=== PATIENT | female | born 1935 | race Caucasian/White ===

== ENCOUNTER 2017-09-01 11:51 | Inpatient (IN) ==
--- NOTE | 2017-09-01 12:25 | Emergency Department Note ---
ED Disposition Clinical Impression: Confusion Dementia Qualifiers: Dementia type: Alzheimer's disease Alzheimer's disease onset: unspecified onset Dementia behavioral disturbance: without behavioral disturbance Qualified Code(s): G30.9 - Alzheimer's disease, unspecified Fever Qualifiers: Fever type: unspecified Qualified Code(s): R50.9 - Fever, unspecified Disposition: Admitted As Inpatient Condition on Discharge: Fair - Critical Care Critical Care Time: No Attestation: On 09/01/17, the high probability of a clinically significant, sudden or life threatening deterioration of the following system(s) required my full and direct attention, intervention and personal management. The time I documented below is in addition to time spent performing reported procedures but includes the following listed in this critical care notation. Medical Decision Making - Medical Records Medical records reviewed: Yes: I reviewed the patient's medical records. - Jason Inquiry Pt receiving controlled substance: No Vital Signs: 09/01/17 11:52 09/01/17 14:22 09/01/17 15:28 Temperature 99.7 F H 101.7 F H 99.0 F Temperature Source Oral Oral Oral Pulse Rate 98 H Pulse Rate [Right Radial] 108 H 98 H Respiratory Rate 16 20 16 Blood Pressure 151/63 Blood Pressure [Right Arm] 131/91 146/61 Blood Pressure Mean [Right Arm] 104 89 Blood Pressure Source Automatic Cuff Blood Pressure Source [Right Arm] Automatic Cuff Automatic Cuff Blood Pressure Position Supine Blood Pressure Position [Right Arm] Supine Sitting 02 Sat by Pulse Oximetry 97 97 Oxygen Delivery Method Room Air Room Air Room Air - Lab Data Lab results reviewed: Yes: I reviewed the patient's lab results. Lab Results 09/01/17 10:19: Urine Color Yellow, Urine Appearance Clear, Urine pH 5.5, Ur Specific [place] 1.020, Urine Protein Trace, Urine Glucose (UA) Negative, Urine Ketones Negative, Urine Blood Negative, Urine Nitrate Negative, Urine Bilirubin Negative, Urine Urobilinogen 0.2, Ur Leukocyte Esterase Negative, Urine RBC None , Urine WBC Occasional, Ur Squamous Epith Cells 5-10, Urine Bacteria Trace 09/01/17 12:25: WBC 12.3 H, RBC 4.12 L, Hgb 12.7, Hct 39.8, MCV 96.8, MCH 30.8, MCHC 31.8, RDW 12.2, Plt Count 257, MPV 7.8, Neut % (Auto) 93.6 H, Lymph % (Auto ) 2.3 L, [place] % (Auto) 2.5, Eos % (Auto) 1.4, Baso % (Auto) 0.2, Neut # (Auto) 11.5 H, Lymph # (Auto) 0.3 L, [place] # (Auto) 0.3, Eos # (Auto) 0.2, Baso # (Auto ) 0.0, Total Counted 100, Neutrophils % (Manual) 94 H, Lymphocytes % (Manual) 3 L, Monocytes % (Manual) 3, Platelet Estimate Normal, RBC Morphology Normal 09/01/17 12:25: Sodium 132 L, Potassium 5.1, Chloride 101, Carbon Dioxide 20 L, Anion Gap 16.1 H, BUN 32 H, Creatinine 1.51 H, Estimated Creat Clear 25, Estimated GFR 33 L, Est GFR ( Amer) 40 L, Glucose 137 H, Calcium 9.0, Total Bilirubin 0.8, AST 19, ALT 15, Alkaline Phosphatase 139 H, Troponin I < 0.02, Total Protein 7.7, Albumin 4.3, Globulin 3.4 H, Albumin/Globulin Ratio 1.3 09/01/17 15:20: Lactic Acid 1.8 Result diagrams: 09/03/17 06:48 09/03/17 06:48 Orders (Tests/Meds): ED MEDICATIONS Discontinued Medications Generic Name Dose Route Start Last Admin Trade Name Freq PRN Reason Stop Dose Admin Acetaminophen 500 mg 09/01/17 14:50 09/01/17 14:58 Tylenol 500mg Tablet PO 10/01/17 14:49 500 mg ONCE PRN Administration fever Acetaminophen 500 mg 09/01/17 15:50 Tylenol 500mg Tablet PO 10/01/17 14:49 ONCE PRN fever Carbidopa/Levodopa 2 each 09/02/17 09:00 09/03/17 08:03 Carbidopa/Levodopa 25/100mg Tablet PO 10/02/17 08:59 2 each TID QUIANA Administration Citalopram Hydrobromide 20 mg 09/02/17 09:00 09/03/17 08:02 Celexa 20mg Tablet PO 10/02/17 08:59 20 mg DAILY QUIANA Administration Donepezil HCl 5 mg 09/02/17 21:00 06/22/18 20:43 Aricept 5mg PO 10/02/17 20:59 5 mg HS QUIANA Administration Ceftriaxone Sodium 1 gm/ 50 mls @ 100 mls/hr 09/01/17 15:05 09/01/17 15:22 Sodium Chloride IV 09/01/17 15:34 100 mls/hr ONCE ONE Administration Protocol Ceftriaxone Sodium 1 gm/ 50 mls @ 100 mls/hr 09/02/17 15:15 Sodium Chloride IV 09/16/17 15:14 Q24H QUIANA Protocol Ceftriaxone Sodium 1 gm/ 50 mls @ 100 mls/hr 09/02/17 15:30 Sodium Chloride IV 09/16/17 15:29 Q24H QUIANA Protocol Sodium Chloride 1,000 mls @ 50 mls/hr 09/01/17 15:50 09/03/17 08:10 Sod Chlor 0.9% 1000ml Bag IV 10/01/17 15:49 Not Given .Q20H QUIANA Ceftriaxone Sodium 1 gm/ 50 mls @ 100 mls/hr 09/02/17 13:00 09/02/17 13:09 Sodium Chloride IV 09/16/17 12:59 100 mls/hr Q24H QUIANA Administration Protocol Isosorbide Mononitrate 30 mg 09/02/17 09:00 09/03/17 08:04 Imdur 30mg Er Tablet PO 10/02/17 08:59 30 mg DAILY QUIANA Administration Montelukast Sodium 10 mg 09/02/17 21:00 09/02/17 20:43 Singulair 10mg Tablet PO 10/02/17 20:59 10 mg HS QUIANA Administration Multivitamins 1 each 09/02/17 09:00 09/03/17 08:02 Multi-Vitamin Plain PO 10/02/17 08:59 1 each DAILY QUIANA Administration Ondansetron HCl 4 mg 09/01/17 15:50 Zofran 4mg/2ml Vial IV 10/01/17 15:49 Q8HP PRN Nausea Pantoprazole Sodium 40 mg 09/02/17 21:00 09/02/17 20:42 Protonix 40mg Tablet PO 10/02/17 20:59 40 mg HS QUIANA Administration Sodium Chloride 10 ml 09/01/17 15:50 Saline Flush 10ml Syringe IV 10/01/17 15:49 NEEDED PRN Maintain IV Site - Radiology Data #1 Image(s): Chest Image Reviewed: Yes I reviewed the patient's radiology image Preliminary Findings: Normal/NAD (chronic changes neg acute noted) - CT Data CT Scan: Head Time Received: 12:[address] Reviewed: Yes: I have viewed the radiologist's interpretation Preliminary Findings: Normal/NAD (old gliotic changes neg acute) - ECG Data Tracing #1 I reviewed this ECG and interpreted as documented below: ECG initial impression date: 09/01/17 ECG initial impression time: 13:35 ECG normal with no acute: arrhythmias, ischemia, conduction abnormalities, chamber hypertrophy Normal Sinus Rhythm: Yes - Physician Consults Physician Consulted: Dr. Novak vocational psychologist for Dr. Cortez Time: 14:47 Reason -: Admission Comment/Response: Lizbeth for Dr. Novak: Rocephin after cx, admit - Reevaluation(s) Time: 14:39 (febrile; hold d/c; page PCP) Neuro HPI - General Chief Complaint: Nausea/Vomiting/Diarrhea Stated Complaint: Vomiting, trouble urinating, cannot walk Time Seen by Provider: 09/01/17 12:10 Mode of Arrival: Wheelchair Source of Information: Patient, Spouse, Relative Limitations: dementia Description of Symptoms (Recalled from ER Triage Doc. by RN): "problems urinating" and nausea since this morning. family reports more confusion than normal. pt reports that her urine is "really, really yellow." - History of Present Illness HPI Narrative: Patient with dysuria and global confusion since yesterday, gradual onset; has PD as well as Alzheimer's dementia, difficult to get full ROS; info from . He says she is always confused and tremulous, needs assistance to ambulate. No focal problems. Vomited once this AM. No fever. No cephalgia or chest pain. Date last observed normal: 08/31/17 Timing confirmed by: spouse Location: other (confused) History of same: Yes Severity: mild Relieving factors: none Exacerbating factors: none Associated symptoms: confusion Treatments Prior to Arrival: none - Related Data Home Medications: Home Medications Medication Instructions Recorded Confirmed Atorvastatin Calcium [Lipitor 20mg 20 mg PO HS 09/01/17 09/01/17 Tablet] Carbidopa/Levodopa [Sinemet 25-100 2 tab PO TID 09/01/17 09/02/17 mg Tablet] Montelukast Sodium [Singulair 10mg 10 mg PO HS 09/01/17 09/02/17 tablet] Multivitamin [One-A-Day Essential] 1 each PO DAILY 09/01/17 09/01/17 Omeprazole [Omeprazole 40mg 40 mg PO BID 09/01/17 09/02/17 Capsule] Citalopram Hydrobromide 20 mg PO DAILY 09/02/17 09/02/17 [Citalopram HBr] Donepezil HCl [Aricept] 5 mg PO HS 09/02/17 09/02/17 Isosorbide Mononitrate [Imdur 30mg 30 mg PO DAILY 09/02/17 09/02/17 ER tablet] Previous Rx's Medication Instructions Recorded Cefdinir [Omnicef 300mg Capsule] 300 mg PO BID #10 cap 09/03/17 Allergies/Adverse Reactions: Allergies Allergy/AdvReac Type Severity Reaction Status Date / Time Penicillins [PENICILLINS] Allergy Intermediate I-RASH Verified 09/01/17 12:11 Sulfa (Sulfonamide Allergy Intermediate I-RASH Verified 09/01/17 12:11 Antibiotics) [SULFA (SULFONAMIDE ANTIBIOTICS)] Stroke Alert/NIH Score - LOC Stroke Alert: No H History I have reviewed the patient's past medical history: Yes Medical History: Reports:: Dementia, Urinary Tract Infection Denies:: Diabetes Mellitus Type 1, Diabetes Mellitus Type 2 - Social History Alcohol Intake: never - Psychiatric History Expresses thoughts of harming self/others: None Suicide Plan Description: No Plan ROS Obtained: Yes All systems reviewed & no additional complaints Physical Exam - General General appearance: alert, in no apparent distress - Eye Eye exam: Present: normal appearance, PERRL, EOMI. Absent: nystagmus, miosis, mydriasis - ENT ENT exam: Present: normal exam, normal oropharynx, mucous membranes moist - Neck Neck exam: Present: normal inspection, full ROM, trachea midline. Absent: tenderness, meningismus, lymphadenopathy - Chest Chest inspection: Present: normal inspection, symmetric chest wall rise. Absent : tenderness - Respiratory Respiratory exam: Present: normal lung sounds bilaterally. Absent: respiratory distress - Cardiovascular Cardiovascular exam: Present: regular rate, normal rhythm, tachycardia, normal heart sounds. Absent: JVD - Abdominal Exam Abdominal exam: Present: soft, normal bowel sounds. Absent: distention, tenderness, guarding - Extremities Exam Extremities exam: Present: normal inspection, full ROM, normal capillary refill. Absent: calf tenderness - Back Exam Back exam: Present: full ROM. 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 No drift. Gait not evaluated but usually needs assistance. ) - Psychiatric Psychiatric exam: Present: normal affect, normal mood - Skin Skin exam: Present: warm, dry, intact, normal color. Absent: cyanosis, diaphoresis, erythema
[2017-09-01 12:31] LABS: Microscopic, Urine URINE MICROSCOPIC (MICROSCOPIC)
[2017-09-01 12:33] LABS: Basophils % 0.2 % (0.1-2.0); Eosinophils # 0.2 K/mm3 (0.0-0.4); Eosinophils % 1.4 % (0.1-12.0); Hematocrit 39.8 % (37.0-47.0); Hemoglobin 12.7 g/dL (12.2-16.2); Lymphocytes # 0.3 K/mm3 (0.7-4.5); Lymphocytes % 2.3 K/mm3 (10-50); Mean Corpuscular HGB Conc 31.8 g/dL (31.8-35.4); Mean Corpuscular Hemoglobin 30.8 pg (27.0-31.2); Mean Corpuscular Volume 96.8 fl (81-99); Mean Platelet Volume 7.8 fl (7.4-10.4); Monocytes # 0.3 K/mm3 (0.1-1.0); Monocytes % 2.5 % (1.7-9.3); Neutrophils # 11.5 K/mm3 (1.8-7.8); Neutrophils % 93.6 % (37.0-80.0); Platelet Count 257 K/mm3 (142-424); Red Blood Count 4.12 M/mm3 (4.20-5.40); Red Cell Distribution Width 12.2 % (11.5-17.5); White Blood Count 12.3 K/mm3 (4.8-10.8)
[2017-09-01 12:34] LABS: Appearance,Urine CLEAR (Clear); Bilirubin,Urine Negative (Negative); Blood, Urine Negative (Negative); Color,Urine YELLOW (Yellow); Glucose,Urine (UA) Negative (Negative); Ketones,Urine Negative (Negative); Leukocyte Esterase,Urine Negative (Negative); PH,Urine 5.5 (5.0-8.5); Protein,Urine TRACE (Negative); Urobilinogen,Urine 0.2 EU/dl (0.2)
[2017-09-01 12:42] LABS: Bacteria,Urine Trace /lpf; WBC,Urine Occasional #/hpf (0-3)
[2017-09-01 12:50] LABS: Alanine Aminotransferase 15 U/L (12-78); Albumin Level 4.3 gm/dL (3.4-5.0); Albumin/Globulin Ratio 1.3 (1.1-1.8); Alkaline Phosphatase 139 U/L (46-116); Anion Gap 16.1 mEq/L (5-15); Aspartate Amino Transferase 19 U/L (15-37); Bilirubin,Total 0.8 mg/dL (0.2-1.0); Blood Urea Nitrogen 32 mg/dL (7-18); Carbon Dioxide 20 mmol/L (21.0-32.0); Chloride 101 mmol/L (98-107); Globulin 3.4 gm/dl (1.3-3.2); Glucose 137 mg/dL (74-106); Potassium 5.1 mmoL/L (3.5-5.1); Sodium 132 mmol/L (136-145); Total Protein,Serum 7.7 gm/dL (6.4-8.2)
[2017-09-01 12:59] LABS: Lymphocytes % 3 % (10-50); Monocytes % 3 % (2-9); Neutrophils % 94 % (42-76); RBC Morphology Normal; Total Cells Counted 100
--- NOTE | 2017-09-01 20:33 | History & Physical Report ---
*Admission Date: 09/01/17 *Chief complaint: confusion and weakness *History of present illness: 81 year old female was brought to the ED for evaluation of increased confusion and weakness. reports confusion and weakness started yesterday. He denies any recent illness or cough/congestion. states she was alert and oriented prior to yesterday. Today, she had an episode of vomiting and was even more confused so he brought her in for evaluation. In the ED, CBC showed slightly elevated WBC at 12.4. She was noted to be mildly dehydrated, as well. Preliminary CXR was normal. Her UTI showed some WBCs and bacteria. CT head was negative for acute pathology. Patient was noted to be oriented to self only and febrile at 101. Patient was admitted for IV antibiotics and further evaluation. [facility] History I have reviewed the patient's past medical history: Yes Medical History: Reports:: Dementia, Urinary Tract Infection Denies:: Cancer, Diabetes Mellitus Type 1, Diabetes Mellitus Type 2, MRSA Other Medical History: Reports: Anemia, Arthritis, Cataracts Laterality Cases: Left: Arthroscopy Shoulder, Bilateral: Tonsillectomy, Total Knee Replacement, Other Other Surgeries: Yes: Colonoscopy, Coronary Stent, Hysterectomy-Total Amputation: No Fractures: Yes ((L) shoulder, (L) hip) - *Social History Educational Level: Completed Grade School Smoking Status: Former smoker Smoking End Date: 1959 Alcohol Intake: never Occupational Status: retired Housing: house Household Members: spouse - Psychiatric History Expresses thoughts of harming self/others: None Suicide Plan Description: No Plan *Family Hx:: Coronary Artery Disease Review of Systems - Review of Systems Review of systems:: pertinent systems reviewed and negative unless documented below Meds Home Medications Medication Instructions Recorded Confirmed Type Atorvastatin Calcium [Lipitor 20mg 20 mg PO HS 09/01/17 09/01/17 History Tablet] Carbidopa/Levodopa [Sinemet 25-100 1 each PO TID 09/01/17 09/01/17 History mg Tablet] Citalopram Hydrobromide [Celexa] 10 mg PO DAILY 09/01/17 09/01/17 History Donepezil HCl [Aricept] 10 mg PO DAILY 09/01/17 09/01/17 History Isosorbide Dinitrate 30 mg PO DAILY 09/01/17 09/01/17 History Montelukast Sodium [Singulair 10mg 10 mg PO PM 09/01/17 09/01/17 History tablet] Multivitamin [One-A-Day Essential] 1 each PO DAILY 09/01/17 09/01/17 History Omeprazole [Omeprazole 40mg 40 mg PO DAILY 09/01/17 09/01/17 History Capsule] Allergies Allergy/AdvReac Type Severity Reaction Status Date / Time Penicillins [PENICILLINS] Allergy Intermediate I-RASH Verified 09/01/17 12:11 Sulfa (Sulfonamide Allergy Intermediate I-RASH Verified 09/01/17 12:11 Antibiotics) [SULFA (SULFONAMIDE ANTIBIOTICS)] Exam Vital signs and Labs for Last 24 Hours: Temp Pulse Resp BP Pulse Ox 98.8 F 95 H 16 155/51 99 09/01/17 20:00 09/01/17 20:00 09/01/17 20:00 09/01/17 20:00 09/01/17 20:00 Laboratory Results - last 24 hr 09/01/17 10:19: Urine Color Yellow, Urine Appearance Clear, Urine pH 5.5, Ur Specific [place] 1.020, Urine Protein Trace, Urine Glucose (UA) Negative, Urine Ketones Negative, Urine Blood Negative, Urine Nitrate Negative, Urine Bilirubin Negative, Urine Urobilinogen 0.2, Ur Leukocyte Esterase Negative, Urine RBC None , Urine WBC Occasional, Ur Squamous Epith Cells 5-10, Urine Bacteria Trace 09/01/17 12:25: WBC 12.3 H, RBC 4.12 L, Hgb 12.7, Hct 39.8, MCV 96.8, MCH 30.8, MCHC 31.8, RDW 12.2, Plt Count 257, MPV 7.8, Neut % (Auto) 93.6 H, Lymph % (Auto ) 2.3 L, [place] % (Auto) 2.5, Eos % (Auto) 1.4, Baso % (Auto) 0.2, Neut # (Auto) 11.5 H, Lymph # (Auto) 0.3 L, [place] # (Auto) 0.3, Eos # (Auto) 0.2, Baso # (Auto ) 0.0, Total Counted 100, Neutrophils % (Manual) 94 H, Lymphocytes % (Manual) 3 L, Monocytes % (Manual) 3, Platelet Estimate Normal, RBC Morphology Normal 09/01/17 12:25: Sodium 132 L, Potassium 5.1, Chloride 101, Carbon Dioxide 20 L, Anion Gap 16.1 H, BUN 32 H, Creatinine 1.51 H, Estimated Creat Clear 25, Estimated GFR 33 L, Est GFR ( Amer) 40 L, Glucose 137 H, Calcium 9.0, Total Bilirubin 0.8, AST 19, ALT 15, Alkaline Phosphatase 139 H, Troponin I < 0.02, Total Protein 7.7, Albumin 4.3, Globulin 3.4 H, Albumin/Globulin Ratio 1.3 09/01/17 15:20: Lactic Acid 1.8 09/01/17 18:41: Lactic Acid 2.5 H I & O for Last 24 hours: Intake & Output 08/30/17 08/31/17 09/01/17 09/02/17 11:59 11:59 11:59 11:59 Intake Total 240 / 240 Output Total 250 / 250 Balance -10 / -10 Weight 122 lb 122 lb 1 oz Narrative: Alert and oriented to self only. Pleasant and cooperative. Tongue midline. No facial droop. Speech clear. Bilateral grasps equal. Rate and rhythm regular. No edema. pulses 2+ bilaterally. Lung sounds clear and equal. Abdomen soft and nontender. Skin pink, warm and dry. H&P: Result - Labs Labs: Short CBC 09/01/17 Range/Units 12:25 WBC 12.3 H (4.8-10.8) K/mm3 Hgb 12.7 (12.2-16.2) g/dL Hct 39.8 (37.0-47.0) % Plt Count 257 (142-424) K/mm3 [facility] 09/01/17 12:25 Sodium 132 L Potassium 5.1 Chloride 101 Carbon Dioxide 20 L BUN 32 H Creatinine 1.51 H Glucose 137 H Calcium 9.0 Cardiac Enzymes 09/01/17 Range/Units 12:25 Troponin I < 0.02 (0.00-0.06) ng/ml Liver Function 09/01/17 Range/Units 12:25 Total Bilirubin 0.8 (0.2-1.0) mg/dL AST 19 (15-37) U/L ALT 15 (12-78) U/L Alkaline Phosphatase 139 H (46-116) U/L Albumin 4.3 (3.4-5.0) gm/dL Urine 09/01/17 Range/Units 10:19 Urine Color Yellow (Yellow) Urine Appearance Clear (Clear) Urine pH 5.5 (5.0-8.5) Ur Specific [place] 1.020 (1.005-1.030) Urine Protein Trace (Negative) Urine Glucose (UA) Negative (Negative) Assessment and Plan (1) Confusion Current visit: Yes Status: Acute Category: Medical Code(s): R41.0 - Disorientation, unspecified (2) Dementia Current visit: Yes Status: Acute Qualifiers: Dementia type: Alzheimer's disease Category: Medical Code(s): F03.90 - Unspecified dementia without behavioral disturbance (3) Fever Current visit: Yes Status: Acute Qualifiers: Fever type: unspecified Qualified Code(s): R50.9 - Fever, unspecified Category: Medical Code(s): R50.9 - Fever, unspecified - Assessment and plan all Dx Assessment and Plan for all problems:: Continue rocephin infusions. Urine and blood cultures pending. Symptoms likely related to UTI. Patient lives at home with her 89 year old . She requires assistance with ambulation and bathing. Care management consulted for home health/placement.
[2017-09-02 06:42] LABS: Basophils % 0.2 % (0.1-2.0); Eosinophils % 0.2 % (0.1-12.0); Hematocrit 35.4 % (37.0-47.0); Lymphocytes % 10.4 K/mm3 (10-50); Mean Corpuscular HGB Conc 32.3 g/dL (31.8-35.4); Mean Corpuscular Hemoglobin 31.5 pg (27.0-31.2); Mean Corpuscular Volume 97.6 fl (81-99); Mean Platelet Volume 8.1 fl (7.4-10.4); Monocytes # 0.4 K/mm3 (0.1-1.0); Monocytes % 4.1 % (1.7-9.3); Neutrophils # 7.8 K/mm3 (1.8-7.8); Neutrophils % 85.1 % (37.0-80.0); Platelet Count 202 K/mm3 (142-424); Red Blood Count 3.62 M/mm3 (4.20-5.40); Red Cell Distribution Width 12.2 % (11.5-17.5); White Blood Count 9.2 K/mm3 (4.8-10.8)
[2017-09-02 06:52] LABS: Anion Gap 13.9 mEq/L (5-15); Calcium 8.6 mg/dL (8.5-10.1); Potassium 4.9 mmoL/L (3.5-5.1)
--- NOTE | 2017-09-02 07:15 | Pharmacy Consult Notes ---
[facility] Pharmacy VTE Monitoring - Patient Demographics Admission date: 09/01/17 Report Date: 09/02/17 Time: 07:15 Allergies/Adverse Reactions: Patient Allergies Penicillins [PENICILLINS] Allergy (Intermediate, Verified 09/01/17 12:11) I-RASH Sulfa (Sulfonamide Antibiotics) [SULFA (SULFONAMIDE ANTIBIOTICS)] Allergy ( Intermediate, Verified 09/01/17 12:11) I-RASH Height: 1.57 m Weight: 55.367 kg Patient Problems: Current Active Problems Confusion (Acute) Dementia (Acute) Fever (Acute) - VTE Risk Labs: VTE Related Lab Results Hgb 12.7 g/dL (12.2-16.2) 09/01/17 12:25 Hct 39.8 % (37.0-47.0) 09/01/17 12:25 Plt Count 257 K/mm3 (142-424) 09/01/17 12:25 BUN 27 mg/dL (7-18) H 09/02/17 06:24 Creatinine 1.31 mg/dL (0.55-1.02) H 09/02/17 06:24 Estimated Creat Clear 29 mL/min (0-300) 09/02/17 06:24 Was VTE Risk Assessment Performed: Yes VTE Score: 3 VTE Risk Level: Low Risk Clinical Trial Participant: No - Prophylaxis VTE Prophylaxis Ordered?: Yes Types of VTE Prophylaxis: TEDS Knee High Location of Applied Device: Bilateral Lower Extremeties
[2017-09-02 07:42] LABS: Hemoglobin 11.4 g/dL (12.2-16.2)
--- NOTE | 2017-09-02 07:42 | Progress Note ---
Internal Medicine - PN: Subj *Date: 09/02/17 *Time: 07:40 Interval history: Overall patient had smooth night, she remains demented and is pleasant, apparently had a good breakfast but when I walked in the room she is coughing after drinking some coffee. She has no complaints of pain. Exam Vital signs and Labs for Last 24 Hours: Temp Pulse Resp BP Pulse Ox 98.4 F 96 H 22 157/68 97 09/02/17 04:00 09/02/17 04:00 09/02/17 04:00 09/02/17 04:00 09/02/17 04:00 Laboratory Results - last 24 hr 09/01/17 10:19: Urine Color Yellow, Urine Appearance Clear, Urine pH 5.5, Ur Specific [place] 1.020, Urine Protein Trace, Urine Glucose (UA) Negative, Urine Ketones Negative, Urine Blood Negative, Urine Nitrate Negative, Urine Bilirubin Negative, Urine Urobilinogen 0.2, Ur Leukocyte Esterase Negative, Urine RBC None , Urine WBC Occasional, Ur Squamous Epith Cells 5-10, Urine Bacteria Trace 09/01/17 12:25: WBC 12.3 H, RBC 4.12 L, Hgb 12.7, Hct 39.8, MCV 96.8, MCH 30.8, MCHC 31.8, RDW 12.2, Plt Count 257, MPV 7.8, Neut % (Auto) 93.6 H, Lymph % (Auto ) 2.3 L, [place] % (Auto) 2.5, Eos % (Auto) 1.4, Baso % (Auto) 0.2, Neut # (Auto) 11.5 H, Lymph # (Auto) 0.3 L, [place] # (Auto) 0.3, Eos # (Auto) 0.2, Baso # (Auto ) 0.0, Total Counted 100, Neutrophils % (Manual) 94 H, Lymphocytes % (Manual) 3 L, Monocytes % (Manual) 3, Platelet Estimate Normal, RBC Morphology Normal 09/01/17 12:25: Sodium 132 L, Potassium 5.1, Chloride 101, Carbon Dioxide 20 L, Anion Gap 16.1 H, BUN 32 H, Creatinine 1.51 H, Estimated Creat Clear 25, Estimated GFR 33 L, Est GFR ( Amer) 40 L, Glucose 137 H, Calcium 9.0, Total Bilirubin 0.8, AST 19, ALT 15, Alkaline Phosphatase 139 H, Troponin I < 0.02, Total Protein 7.7, Albumin 4.3, Globulin 3.4 H, Albumin/Globulin Ratio 1.3 09/01/17 15:20: Lactic Acid 1.8 09/01/17 18:41: Lactic Acid 2.5 H 09/01/17 21:01: Lactic Acid Fup @ 4Hr 2.5 H 09/01/17 23:12: Lactic Acid Fup @ 2Hr 1.3 09/02/17 06:24: Sodium 133 L, Potassium 4.9, Chloride 102, Carbon Dioxide 22, Anion Gap 13.9, BUN 27 H, Creatinine 1.31 H, Estimated Creat Clear 29, Estimated GFR 39 L, Est GFR ( Amer) 47 L, Glucose 111 H, Calcium 8.6 I & O for Last 24 hours: Intake & Output 08/30/17 08/31/17 09/01/17 09/02/17 11:59 11:59 11:59 11:59 Intake Total 240 / 240 Output Total 800 / 800 Balance -560 / -560 Weight 122 lb 122 lb 1 oz Narrative: Patient is demented but pleasant. Lungs have good air movement, some crackles in the bases, heart rate regular. Abdomen soft nontender, no edema. No skin rash. Assessment and Plan (1) Confusion Current visit: Yes Status: Acute Category: Medical Code(s): R41.0 - Disorientation, unspecified (2) Dementia Current visit: Yes Status: Acute Qualifiers: Dementia type: Alzheimer's disease Category: Medical Code(s): F03.90 - Unspecified dementia without behavioral disturbance (3) Fever Current visit: Yes Status: Acute Qualifiers: Fever type: unspecified Qualified Code(s): R50.9 - Fever, unspecified Category: Medical Code(s): R50.9 - Fever, unspecified - Assessment and plan all Dx Assessment and Plan for all problems:: Possible aspiration pneumonia, speech therapy evaluation. Recheck chest x-ray. Continue antibiotics. care management evaluation for long-term placement. Watch culture results.
[2017-09-02 15:23] LABS: Lymphocytes % 5 % (10-50); Monocytes % 6 % (2-9); Neutrophils % 87 % (42-76); Total Cells Counted 100
[2017-09-02 15:24] LABS: RBC Morphology Normal
[2017-09-03 07:27] LABS: Basophils % 0.3 % (0.1-2.0); Eosinophils # 0.1 K/mm3 (0.0-0.4); Eosinophils % 1.2 % (0.1-12.0); Hematocrit 33.5 % (37.0-47.0); Hemoglobin 10.9 g/dL (12.2-16.2); Lymphocytes # 1.1 K/mm3 (0.7-4.5); Lymphocytes % 15.8 K/mm3 (10-50); Mean Corpuscular HGB Conc 32.6 g/dL (31.8-35.4); Mean Corpuscular Hemoglobin 31.1 pg (27.0-31.2); Mean Corpuscular Volume 95.5 fl (81-99); Monocytes # 0.4 K/mm3 (0.1-1.0); Monocytes % 5.6 % (1.7-9.3); Neutrophils # 5.3 K/mm3 (1.8-7.8); Neutrophils % 77.1 % (37.0-80.0); Platelet Count 203 K/mm3 (142-424); Red Blood Count 3.51 M/mm3 (4.20-5.40); Red Cell Distribution Width 12.1 % (11.5-17.5); White Blood Count 6.9 K/mm3 (4.8-10.8)
[2017-09-03 07:35] LABS: Albumin Level 3.5 gm/dL (3.4-5.0); Albumin/Globulin Ratio 1.2 (1.1-1.8); Anion Gap 14.8 mEq/L (5-15); Bilirubin,Total 0.6 mg/dL (0.2-1.0); Calcium 8.4 mg/dL (8.5-10.1); Potassium 3.8 mmoL/L (3.5-5.1); Total Protein,Serum 6.5 gm/dL (6.4-8.2)
--- NOTE | 2017-09-03 08:23 | Discharge Summary ---
General - General Admission date:: 09/01/17 Discharge date: 09/03/17 HPI HPI: 81 year old female was brought to the ED for evaluation of increased confusion and weakness. reports confusion and weakness started yesterday. He denies any recent illness or cough/congestion. states she was alert and oriented prior to yesterday. Today, she had an episode of vomiting and was even more confused so he brought her in for evaluation. In the ED, CBC showed slightly elevated WBC at 12.4. She was noted to be mildly dehydrated, as well. Preliminary CXR was normal. Her UTI showed some WBCs and bacteria. CT head was negative for acute pathology. Patient was noted to be oriented to self only and febrile at 101. Patient was admitted for IV antibiotics and further evaluation. Hospital Course Hospital Course: Patient was admitted. Placed on ceftriaxone. She defervesced very nicely. Minimal acute kidney injury improved with low-grade hydration. White count also improved. Patient was found to have perihilar infiltrate on the right, and her antibiotics were continued. Urine culture, blood cultures were negative. The patient's expressed some interest in evaluating for long-term care, but patient did very nicely with physical therapy here and was able to walk over 100 yards on her own power with a walker. She was also evaluated by speech therapy because of her risk for aspiration and some coughing that had been noticed by me on her oral intake. Please see speech therapy notes and recommendations which are appreciated. Family was instructed by speech therapy on safe swallowing techniques. After discussion with her who felt comfortable taking her home with home health. Home health agency will be engaged. She will be sent home today on Cefdinir to finish up this for her community acquired pneumonia. Other medications are as noted. She will follow-up with Dr. Cortez in his office in the next week. Objective Vital signs: Temp Pulse Resp BP Pulse Ox 98.3 F 91 H 20 145/75 97 09/03/17 04:00 09/03/17 04:00 09/03/17 04:00 09/03/17 04:00 09/03/17 07:49 Narrative: Patient is pleasant and demented. No distress. Eating well this morning. Lungs have minimal rhonchi but clear otherwise, except for this minimal rhonchi in the right base which is improving. Abdomen soft, heart rate regular. No edema noted. She is able to move all of her extremities. Results Labs on day of discharge: Labs from last 24 hours 09/03/17 09/03/17 09/02/17 06:48 06:48 06:24 WBC 6.9 RBC 3.51 L Hgb 10.9 L Hct 33.5 L MCV 95.5 MCH 31.1 MCHC 32.6 RDW 12.1 Plt Count 203 MPV 8.0 Neut % (Auto) 77.1 Lymph % (Auto) 15.8 [place] % (Auto) 5.6 Eos % (Auto) 1.2 Baso % (Auto) 0.3 Neut # (Auto) 5.3 Lymph # (Auto) 1.1 [place] # (Auto) 0.4 Eos # (Auto) 0.1 Baso # (Auto) 0.0 Total Counted 100 Neutrophils % (Manual) 87 H Band Neutrophils % 1.0 Lymphocytes % (Manual) 5 L Monocytes % (Manual) 6 Basophils % (Manual) 1.0 Platelet Estimate Normal RBC Morphology Normal Sodium 132 L Potassium 3.8 D Chloride 100 Carbon Dioxide 21 Anion Gap 14.8 BUN 18 D Creatinine 1.13 H Estimated Creat Clear 34 Estimated GFR 46 L Est GFR ( Amer) 56 L Glucose 108 H Calcium 8.4 L Total Bilirubin 0.6 AST 23 ALT 17 Alkaline Phosphatase 108 Total Protein 6.5 Albumin 3.5 Globulin 3.0 Albumin/Globulin Ratio 1.2 Preliminary micro results at discharge 09/01/17 15:50 Urine Culture - Preliminary Urine,Clean Catch NO GROWTH AFTER 24 HOURS DS: Diagnosis - Discharge Diagnosis (1) Confusion Status: Acute (2) Dementia Status: Acute (3) Fever Status: Acute (4) Right lower lobe pneumonia Status: Acute Discharge Plan - Patient Discharge Instructions ACTIVITY: Continue current activity DIET: continue same diet - Follow up Plan Follow up with: José Miguel Cortez MD [Primary Care Provider] - 1 week Disposition: Home Health Service Home Medications: Home Medications Medication Instructions Recorded Confirmed Type Atorvastatin Calcium [Lipitor 20mg 20 mg PO HS 09/01/17 09/01/17 History Tablet] Carbidopa/Levodopa [Sinemet 25-100 2 tab PO TID 09/01/17 09/02/17 History mg Tablet] Montelukast Sodium [Singulair 10mg 10 mg PO HS 09/01/17 09/02/17 History tablet] Multivitamin [One-A-Day Essential] 1 each PO DAILY 09/01/17 09/01/17 History Omeprazole [Omeprazole 40mg 40 mg PO BID 09/01/17 09/02/17 History Capsule] Citalopram Hydrobromide 20 mg PO DAILY 09/02/17 09/02/17 History [Citalopram HBr] Donepezil HCl [Aricept] 5 mg PO HS 09/02/17 09/02/17 History Isosorbide Mononitrate [Imdur 30mg 30 mg PO DAILY 09/02/17 09/02/17 History ER tablet] Prescriptions/Medication Reconciliation: New Cefdinir [Omnicef 300mg Capsule] 300 mg PO BID #10 cap Continue Carbidopa/Levodopa [Sinemet 25-100 mg Tablet] 2 tab PO TID Multivitamin [One-A-Day Essential] 1 each PO DAILY Montelukast Sodium [Singulair 10mg tablet] 10 mg PO HS Atorvastatin Calcium [Lipitor 20mg Tablet] 20 mg PO HS Donepezil HCl [Aricept] 5 mg PO HS Isosorbide Mononitrate [Imdur 30mg ER tablet] 30 mg PO DAILY Omeprazole [Omeprazole 40mg Capsule] 40 mg PO BID Citalopram Hydrobromide [Citalopram HBr] 20 mg PO DAILY
== END 2017-09-03 10:40 | disposition home health service (06) ==
LOC: ER 11:51 → 2ND 14:59
PROVIDERS: ADMIT Internal Medicine Adolescent Medicine; ATTEND Internal Medicine Adolescent Medicine